=== PATIENT | female | born 1985 | race Caucasian/White ===

== ENCOUNTER 2021-06-20 10:58 | Emergency (ER) | payer MEDICAID ==
[~2021-06-20] VITALS: Ht 162.6 cm; Wt 80.0 kg
--- NOTE | 2021-06-20 11:29 | PHYS DOC ---
General Adult EDM: Chief Complaint: SHOUDLER HPI: HPI: Patient is a 36 year old female who presents to the ED today complaining of 12/10 left shoulder pain, symptoms began on Thursday this week. Patient denies any injuries. Describes the pain as sharp and constant worse on movement. She states she was seen at [facility] emergency room yesterday and "they did not have the test I needed". On further investigation she is talking about MRI. Review of Systems: Review of Systems: Constitutional: Denies fever or chills. [] Musculoskeletal: Reports left shoulder pain Integument: Denies rash. [] Neurologic: Denies headache, focal weakness or sensory changes. [] Psychiatric: Denies depression or anxiety. [] Heart Score: C/O Chest Pain: N/A Risk Factors: Risk Factors: DM, Current or recent (<one month) smoker, HTN, HLP, family history of CAD, obesity. Risk Scores: Score 0 - 3: 2.5% MACE over next 6 weeks - Discharge Home Score 4 - 6: 20.3% MACE over next 6 weeks - Admit for Clinical Observation Score 7 - 10: 72.7% MACE over next 6 weeks - Early Invasive Strategies Allergies: Allergies: Allergies Coded Allergies Type Severity Reaction Last Updated Verified No Known Drug Allergies 06/20/21 No Physical Exam: PE: Constitutional: Well developed, well nourished, no acute distress, non-toxic appearance. [] Skin: Warm, dry, no erythema, no rash. [] Back: No tenderness, no CVA tenderness. [] Extremities: Left shoulder in a sling, no obvious deformity noted. Full passive range of motion to the left shoulder. Full active range of motion to the left hand and fingers. Adequate radial, medial, ulnar sensation to the left upper extremity. +2 left radial pulse. Cap refill less than 2 seconds to left fingers. Neurologic: Alert and oriented X 3, normal motor function, normal sensory func tion, no focal deficits noted. [] Psychologic: Affect normal, judgement normal, mood normal. [] EKG: EKG: [] Radiology/Procedures: Radiology/Procedures: []PROCEDURE: SHOULDER 2+V LEFT EXAM: Left shoulder, 3 views. HISTORY: Pain. COMPARISON: None. FINDINGS: 3 views of the left shoulder obtained. There is no acute fracture, dislocation or subluxation. There is suspected calcification involving the r otator cuff. IMPRESSION: 1. No acute osseous finding. 2. Suspected rotator cuff calcification. Correlate for calcific tendinitis. Electronically signed by: Dorene Song MD (06/20/2021 12:22 PM) [id number] DICTATED and SIGNED BY: DORENE SONG MD DATE: 06/20/21 [id number] 0 Course & Med Decision Making: Course & Med Decision Making Pertinent Labs and Imaging studies reviewed. (See chart for details) This is a 36-year-old female patient presented to the ED today with left shoulder pain, symptoms began on Thursday. No known injury. Right shoulder x-rays interpreted by radiologist were negative for any acute findings, noted for suspected rotator cuff calcification/tendinitis. Patient already has a sling. Encourage patient to remove the left upper extremity from the sling several times a day and take it through full range of motion. Discharge on Medrol Dosepak, naproxen and Flexeril. Follow-up with Ortho in 1 week Fabio Disclaimer: Fabio Disclaimer: This electronic medical record was generated, in whole or in part, using a voice recognition dictation system. Departure Departure Impression: Primary Impression: Tendinitis of left shoulder Disposition: HOME / SELF CARE / HOMELESS Condition: STABLE Referrals: EMILY JOHNSON MD (PCP) ROSA ATKINSON MD follow up in 1 week Patient Instructions: Calcific Tendinitis Additional Instructions: You were seen for left shoulder pain and noted to have calcified tendinitis to the left shoulder. We encourage you to remove the left upper extremity from the sling and take it through range of motion several times every hour. Please follow-up with the provided orthopedic doctor. Please ice and elevate the affected extremity. Come back to the ED at any point symptoms worsen Scripts Naproxen (NAPROXEN) 500 Mg Tablet. 1 TAB PO BID, #20 TAB 0 Refills Prov: MYKEDALE Levy RISK MANAGEMENT INTERN 06/20/21 Methylprednisolone (MEDROL) 4 Mg Tab.ds.pk 1 PKG PO UD, #1 PKG Prov: DALE STRINGER RISK MANAGEMENT INTERN 06/20/21 Cyclobenzaprine Hcl (CYCLOBENZAPRINE HCL) 10 Mg Tablet 1 TAB PO TID, #90 TAB Prov: DALE STRINGER RISK MANAGEMENT INTERN 06/20/21 DALE STRINGER APRN Jun 20, 2021 11:29
--- NOTE | 2021-06-20 12:24 | RAD ---
EXAM: Left shoulder, 3 views. HISTORY: Pain. COMPARISON: None. FINDINGS: 3 views of the left shoulder obtained. There is no acute fracture, dislocation or subluxati on. There is suspected calcification involving the rotator cuff. IMPRESSION: 1. No acute osseous finding. 2. Suspected rotator cuff calcification. Correlate for calcific tendinitis. Electronically signed by: Ann Villareal MD (06/20/2021 12:22 PM) [id number]
[2021-06-20 13:08] VITALS: BP 138/78
[2021-06-20] MEDS ORDERED: NAPR500T8 PO (13:13)
[2021-06-20] MEDS ORDERED: METH4TAB2 PO (13:13)
[2021-06-20] MEDS ORDERED: CYCL10TA2 PO (13:13)
== END 2021-06-20 13:40 | disposition home or self-care (01) ==
LOC: ER 10:58
DX: M77.8 Other enthesopathies, not elsewhere classified (principal)
CPT/HCPCS: 73030; 99285